=== PATIENT | female | born 1980 | race Hispanic/Latino ===

== ENCOUNTER → 2024-10-30 09:51 | Outpatient (CLI) | payer OTHER, SELFPAY ==
--- NOTE | 2024-10-30 09:55 | DI.RAD.S_ITS ---
PROCEDURE: XR SHOULDER LT MIN 2V INDICATIONS: L shoulder pain, poss dislocation TECHNIQUE: 3 views of the shoulder were acquired. COMPARISON: None. FINDINGS: Bones: No fractures or dislocations. No suspicious bony lesions. Visualized ribs appear intact. Acromioclavicular joint space narrowing with osteophytosis. Streaky calcification projecting along the course of the supraspinatus tendon. Soft tissues: No suspicious soft tissue calcifications. IMPRESSION: No dislocation. Small calcification projecting lateral to the greater tuberosity, either dystrophic calcification or supraspinatus calcific tendinopathy. Moderate acromioclavicular osteoarthritis. Dictated by: Aiden Ariza M.D. on 10/30/2024 at 10:23 Approved by: Aiden Ariza M.D. on 10/30/2024 at 10:23
== END ==
PROVIDERS: Referring Provider Family Medicine; Visit Provider Family Medicine
DX: M19.012 Primary osteoarthritis, left shoulder (principal); M25.512 Pain in left shoulder
CPT/HCPCS: 73030